=== PATIENT | male | born 1970 | race African-American/Black ===

== ENCOUNTER 2023-06-21 09:29 | Emergency (ER) | payer OTHER ==
[~2023-06-21] VITALS: Ht 175.3 cm; Wt 154.0 kg
[2023-06-21 09:32] VITALS: TEMP 98.6; O2SAT 99
[2023-06-21 10:30] VITALS: BP 156/105; PULSE 74; RESP 20
[2023-06-21] MEDS ORDERED: KETOROLAC 30MG/ML VIAL IM ONE (10:30)
[2023-06-21] MEDS ORDERED: LIDOCAINE 5% PATCH TOP SCH (10:30)
[2023-06-21] MEDS ORDERED: KETOROLAC 30MG/ML VIAL IM NR (10:30)
[2023-06-21] MEDS ORDERED: NAPR-1176 MT (11:26)
[2023-06-21] MEDS ORDERED: LIDO700A15 TP (11:26)
== END 2023-06-21 12:14 | disposition home or self-care (01) ==
LOC: ER 09:29
DX: M54.50 Low back pain, unspecified (principal); M79.18 Myalgia, other site; J45.909 Unspecified asthma, uncomplicated
CPT/HCPCS: 99283; 96372; J1885